=== PATIENT | female | born 1950 | race Caucasian/White ===

== ENCOUNTER 2016-12-16 13:00 | Emergency (ER) | payer MEDICARE ==
[2016-12-16 14:48] VITALS: BP 166/76
--- NOTE | 2016-12-16 15:29 | UC ---
Lower Extremity/Ankle HPI - HPI Summary HPI Summary: 4 DAYS OF RIGHT LATERAL UPPER LEG PAIN. FEELS LIKE A DULL, ACHING, BURNING PAIN. NO TRAUMA. WORSE WHEN SHE WALKS. BETTER WITH ASPIRIN. H/O RIGHT HIP FRACTURE SEVERAL MONTHS AGO TREATED CONSERVATIVELY. PT DENIES ANY HIP PAIN. STATES IT IS ALL IN THE SIDE OF HER LEG. POINTS TO A DISCRETE AREA ON OUTSIDE OF HER RIGHT UPPER LEG. - History of Current Complaint Chief Complaint: UCLowerExtremity Stated Complaint: LEG COMPLAINT Time Seen by Provider: 12/16/16 14:56 Hx Obtained From: Patient Onset/Duration: Gradual Onset, Lasting Days, Still Present Severity Initially: Moderate Severity Currently: Moderate Pain Intensity: 5 Pain Scale Used: 0-10 Numeric Aggravating Factor(s): Standing, Ambulation Alleviating Factor(s): Rest Able to Bear Weight: Yes - Allergies/Home Medications Allergies/Adverse Reactions: Allergies Allergy/AdvReac Type Severity Reaction Status Date / Time No Known Allergies Allergy Verified 12/16/16 14:41 Home Medications: Home Medications Aspirin [Aspirin 81 MG TAB] 81 mg PO Q6H PRN 12/16/16 [History Confirmed ] PMH/Surg Hx/FS Hx/Imm Hx Previously Healthy: Yes Endocrine History Of: Denies: Diabetes Cardiovascular History Of: Denies: Hypertension, Pacemaker/ICD, Congestive Heart Failure - Surgical History Surgical History: Yes Surgery Procedure, Year, and Place: tubal ligation. Cataracts - Family History Known Family History: Negative: Hypertension, Diabetes - Social History Alcohol Use: None Substance Use Type: None Smoking Status (MU): Light Every Day Tobacco Smoker Type: Cigarettes Amount Used/How Often: about 4 sigarettes a day Length of Time of Smoking/Using Tobacco: started smoking at age 20 - Immunization History Most Recent Influenza Vaccination: fall 2015 Review of Systems Constitutional: Negative Skin: Negative Respiratory: Negative Cardiovascular: Negative Gastrointestinal: Negative Musculoskeletal: Myalgia Neurological: Paresthesia All Other Systems Reviewed And Are Negative: Yes Physical Exam Triage Information Reviewed: Yes Appearance: Well-Appearing, No Pain Distress, Well-Nourished Vital Signs: Initial Vital Signs Temp 97.8 F 12/16/16 14:43 Pulse 51 12/16/16 14:43 Resp 16 12/16/16 14:43 BP 166/76 12/16/16 14:43 Pulse Ox 99 12/16/16 14:43 Vital Signs Reviewed: Yes Eyes: Positive: Conjunctiva Clear ENT: Positive: Hearing grossly normal Neck: Positive: Supple Respiratory: Positive: No respiratory distress, No accessory muscle use Cardiovascular: Positive: Pulses Normal Abdomen Description: Positive: Soft Musculoskeletal: Positive: No Edema, Other: - MILDLY TENDER OVER LATERAL RIGHT UPPER LEG. NOT TENDER OVER ANY BONY PROMINENCES. Neurological: Positive: Alert Psychological: Positive: Age Appropriate Behavior Skin: Negative: rashes Lower Extremity Course/Dx - Differential Dx/Diagnosis Differential Diagnosis/HQI/PQRI: Bursitis, Contusion, DVT, Fracture (Closed), Phlebitis, Strain Provider Diagnoses: MERALGIA PARESTHETICA Discharge - Discharge Plan Condition: Stable Disposition: HOME Prescriptions: Naproxen [Naproxen EC] 500 mg PO BID PRN #30 tab PRN Reason: Pain predniSONE TAB* [Deltasone TAB*] 40 mg PO DAILY #10 tab Patient Education Materials: Meralgia Paresthetica (ED) Referrals: Danielle Duran NP [Nurse Practitioner] - (KEEP YOUR APPT IN 3 WEEKS) Additional Instructions: MERALGIA PARESTHETICA Meralgia paresthetica is the term used to describe the syndrome of pain, altered sensation, or both in the front/side of the thigh associated with compression of the lateral femoral cutaneous nerve. The majority of meralgia paresthetica cases result from entrapment of the lateral femoral cutaneous nerve as it passes under the inguinal ligament in the groin. The most frequent associated conditions are obesity, diabetes mellitus, and older age. Meralgia paresthetica is a self-limited, benign disease in most patients. More than 90 percent of patients respond to conservative measures alone, although recurrent symptoms are common. Avoid tight garments. Work on weight loss. For patients with symptoms that persist for more than one to two months despite conservative measures, anticonvulsants such as carbamazepine or gabapentin, can be helpful in reducing neuropathic pain. A local nerve block can also be considered. Rarely, surgical nerve decompression or sectioning is necessary. TRY STEROIDS AND ANTI-INFLAMMATORIES. KEEP YOUR PCP FOLLOW-UP APPT IN 3 WEEKS TO DISCUSS FURTHER TREATMENT OPTIONS OR FOR FURTHER EVALUATION IF YOUR SYMPTOMS ARE PERSISTENT ALTHOUGH IT IS NOT UNCOMMON FOR SYMPTOMS TO PERSIST FOR SOME MONTHS.
== END 2016-12-16 15:34 | disposition home or self-care (01) ==
LOC: UCEAST 13:00
DX: G57.11 Meralgia paresthetica, right lower limb (principal); F17.210 Nicotine dependence, cigarettes, uncomplicated; Z79.82 Long term (current) use of aspirin
CPT/HCPCS: 99212; G0463